=== PATIENT | female | born 1955 | race Two or more races ===

== ENCOUNTER 2024-04-15 13:52 | Emergency (ER) | payer MEDICARE, OTHER ==
[~2024-04-15] VITALS: Ht 149.9 cm; Wt 63.6 kg
[2024-04-15 14:31] LABS: BASOPHILS # (AUTO) 0.1 X10'3 (0-0.2); BASOPHILS % (AUTO) 0.9 % (0-1); EOSINOPHILS # (AUTO) 0.4 X10'3 (0-0.9); EOSINOPHILS % (AUTO) 4.7 % (0-6); HEMOGLOBIN 14.1 g/dl (12.0-16.0); LYMPHOCYTES # (AUTO) 3.1 X10'3 (1.1-4.8); MEAN CORPUSCULAR HEMOGLOBIN 28.5 PG (27.0-31.0); MEAN CORPUSCULAR HGB CONC 33.5 g/dL (33.0-36.5); MEAN CORPUSCULAR VOLUME 85.1 FL (78-98); MEAN PLATELET VOLUME 7.8 FL (7.4-10.4); MONOCYTES # (AUTO) 0.7 X10'3 (0-0.9); MONOCYTES % (AUTO) 8.3 % (2-12); NEUTROPHILS # (AUTO) 4.5 X10'3 (1.8-7.7); NEUTROPHILS % (AUTO) 51.1 % (42-75); PLATELET COUNT 293 X10'3 (140-440); RED BLOOD COUNT 4.93 X10'6 (4.20-5.60); RED CELL DISTRIBUTION WIDTH 13.6 % (11.5-14.5); WHITE BLOOD COUNT 8.9 X10'3 (4.5-11.0)
[2024-04-15 14:46] LABS: ALANINE AMINOTRANSFERASE 23 U/L (12-78); ALBUMIN 3.9 G/DL (3.4-5.0); ALBUMIN/GLOBULIN RATIO 1.2 (1.1-1.5); ALKALINE PHOSPHATASE 72 IU/L (46-116); ANION GAP 7 (8-16); ASPARTATE AMINO TRANSFERASE 11 U/L (10-37); BILIRUBIN,TOTAL 0.4 MG/DL (0.1-1.0); BLOOD UREA NITROGEN 13 MG/DL (7-18); BUN/CREATININE RATIO 16.3 (10.0-20.0); CALCIUM 9.2 MG/DL (8.5-10.1); CHLORIDE 106 MMOL/L (99-107); GLUCOSE 157 MG/DL (70-104); SODIUM 141 MMOL/L (135-145); TOTAL CARBON DIOXIDE 28.1 MMOL/L (24-32); TOTAL PROTEIN 7.2 G/DL (6.4-8.2); eCRCL 46 ML/MIN; eGFR 71 ML/MIN
[2024-04-15 14:54] LABS: PRO BRAIN NATRIURETIC PEPTIDE 115 PG/ML (0-125)
[2024-04-15] MEDS ORDERED: LEVO25CA4 PO (18:36)
[2024-04-15] MEDS ORDERED: OMEP40CA21 PO (18:36)
[2024-04-15 18:41] VITALS: BP 156/86; PULSE 68; RESP 14; TEMP 96.6; O2SAT 96
== END 2024-04-15 18:43 | disposition home or self-care (01) ==
LOC: ER 13:53
DX: I10 Essential (primary) hypertension (principal); E11.9 Type 2 diabetes mellitus without complications; E78.00 Pure hypercholesterolemia, unspecified; E03.9 Hypothyroidism, unspecified; Z88.8 Allergy status to other drugs, medicaments and biological substances
CPT/HCPCS: 36415; 71045; 80053; 83880; 84484; 85025; 93005; 99285

== ENCOUNTER 2024-05-25 09:23 | Inpatient (IN) | payer MEDICARE, MEDICAID ==
[2024-05-25] VITALS (10 sets, daily range): BP systolic 145–162; BP diastolic 73–89; PULSE 83–131; RESP 15–16; TEMP 98.1; O2SAT 95–99
[~2024-05-25] VITALS: Ht 149.9 cm; Wt 65.8 kg
[~2024-05-25 09:23] MED LIST: LEVO25CA5 PO; OMEP40CA21 PO
[2024-05-25 10:22] LABS: BASOPHILS # (AUTO) 0.1 X10'3 (0-0.2); BASOPHILS % (AUTO) 0.4 % (0-1); EOSINOPHILS # (AUTO) 0.1 X10'3 (0-0.9); EOSINOPHILS % (AUTO) 0.8 % (0-6); HEMATOCRIT 42.1 % (35.0-45.0); HEMOGLOBIN 13.9 g/dl (12.0-16.0); LYMPHOCYTES # (AUTO) 1.9 X10'3 (1.1-4.8); MEAN CORPUSCULAR HEMOGLOBIN 28.2 PG (27.0-31.0); MEAN CORPUSCULAR HGB CONC 32.9 g/dL (33.0-36.5); MEAN CORPUSCULAR VOLUME 85.7 FL (78-98); MEAN PLATELET VOLUME 7.4 FL (7.4-10.4); MONOCYTES # (AUTO) 0.9 X10'3 (0-0.9); MONOCYTES % (AUTO) 6.2 % (2-12); NEUTROPHILS # (AUTO) 10.8 X10'3 (1.8-7.7); NEUTROPHILS % (AUTO) 78.6 % (42-75); PLATELET COUNT 265 X10'3 (140-440); RED BLOOD COUNT 4.91 X10'6 (4.20-5.60); RED CELL DISTRIBUTION WIDTH 13.4 % (11.5-14.5); WHITE BLOOD COUNT 13.7 X10'3 (4.5-11.0)
[2024-05-25 10:43] LABS: ALANINE AMINOTRANSFERASE 20 U/L (12-78); ALBUMIN 3.8 G/DL (3.4-5.0); ALKALINE PHOSPHATASE 61 IU/L (46-116); ANION GAP 6 (8-16); ASPARTATE AMINO TRANSFERASE 14 U/L (10-37); BILIRUBIN,TOTAL 0.4 MG/DL (0.1-1.0); BLOOD UREA NITROGEN 18 MG/DL (7-18); BUN/CREATININE RATIO 23.1 (10.0-20.0); CALCIUM 9.2 MG/DL (8.5-10.1); CHLORIDE 106 MMOL/L (99-107); CREATININE 0.78 MG/DL (0.40-0.90); GLUCOSE 82 MG/DL (70-104); POTASSIUM 3.8 MMOL/L (3.5-5.1); SODIUM 140 MMOL/L (135-145); TOTAL PROTEIN 7.5 G/DL (6.4-8.2); eCRCL 47 ML/MIN; eGFR 73 ML/MIN
[2024-05-25 10:49] LABS: PRO BRAIN NATRIURETIC PEPTIDE 212 PG/ML (0-125)
[2024-05-25] MEDS ORDERED: nitroGLYCERIN 0.4mg SUBLingual tab SL PRN (12:45)
[2024-05-25] MEDS ORDERED: potassium Cl 20 mEq SR tablet PO PRN ×2 (12:45)
[2024-05-25] MEDS ORDERED: magnesium hydroxide 30ml (MOM) UD suspension PO PRN (12:45)
[2024-05-25] MEDS ORDERED: aminophylline 500mg/20ml vial IV PRN (12:45)
[2024-05-25] MEDS ORDERED: HYDROcodone/acetaminophen 5mg/325mg tablet PO PRN (12:45)
[2024-05-25] MEDS ORDERED: mag hydrox/Alum hydrox/simeth 30ml oral suspension PO PRN (12:45)
[2024-05-25] MEDS ORDERED: potassium Cl 40MEQ/1/2NS 520ml 520 ML IV PRN (12:45)
[2024-05-25] MEDS ORDERED: ondansetron 4mg rapidly disintigrating tab PO PRN (12:45)
[2024-05-25] MEDS ORDERED: ondansetron/PF 4mg/2ml inj IV PRN (12:45)
[2024-05-25] MEDS ORDERED: magnesium sulf-water 4G/100mL 100 ML IV PRN (12:45)
[2024-05-25] MEDS ORDERED: acetaminophen 325mg tablet PO PRN (12:45)
[2024-05-25] MEDS ORDERED: metoprolol tartrate 1mg/ml inj IV PRN (12:45)
[2024-05-25] MEDS ORDERED: magnesium sulf-water 2g/50mL 50 ML IV PRN (12:45)
[2024-05-25] MEDS ORDERED: HYDROcodone/acetaminophen 10/325mg tab PO PRN (12:45)
[2024-05-25] MEDS: PERFLUTREN PROTEIN-A MICROSPHR (Optison) 0.22 MG/ML 3ML VIAL IV ONE (12:50)
[2024-05-25] MEDS: losartan 25mg tablet PO ONE (12:50)
[2024-05-25] MEDS ORDERED: glucagon, human recombinant 1mg kit SUBCUT PRN (13:25)
[2024-05-25] MEDS ORDERED: dextrose 50%-water 50ml dispensing syringe IV PRN ×2 (13:25)
[2024-05-25] MEDS ORDERED: DEXTROSE 15 GM of carb/4 tabs (each vial/BOTTLE has 4 tablets) PO PRN ×2 (13:25)
[2024-05-25] MEDS ORDERED: hydrALAZINE 20mg/ml inj. IV PRN (13:35)
[2024-05-25 13:55] LABS: CHOL/HDL RATIO 3.2 (0.00-4.99); CHOLESTEROL 149 MG/DL (0-200); HDL CHOLESTEROL 47 MG/DL (35-60); LDL CHOLESTEROL 82 MG/DL (50-100); TRIGLYCERIDES 94 MG/DL (20-135)
[2024-05-25 13:56] LABS: HEMOGLOBIN A1C 8.5 % (4.5-6.2)
[2024-05-25] MEDS: regadenoson 0.4mg/5ml syringe IV PRN (16:19)
[2024-05-25] MEDS: INSULIN LISPRO 100 UNIT/ML INSULN.PEN MULTI-DOSE SQ SCH (17:00)
[2024-05-25] MEDS: acetaminophen 325mg tablet PO PRN (18:14)
[2024-05-25] MEDS ORDERED: ATOR20TA PO (19:10)
[2024-05-25] MEDS ORDERED: CHOL125C6 PO (19:10)
[2024-05-25] MEDS ORDERED: DAPA10TA PO (19:10)
[2024-05-25] MEDS ORDERED: OMEP40CA21 PO (19:10)
[2024-05-25] MEDS ORDERED: GLIP-299 PO (19:10)
[2024-05-25] MEDS ORDERED: SYN0.088T PO (19:10)
[2024-05-25] MEDS: K and/or MAG REPLACEMENT MC SCH (20:00)
[2024-05-25] MEDS: docusate sod 100mg capsule PO SCH (20:00)
[2024-05-25] MEDS: heparin, porcine 5000 units/ml vial SQ SCH (20:35)
[2024-05-25] MEDS: atorvastatin 20mg tablet PO SCH (20:36)
[2024-05-26 03:00] VITALS: BP 124/68; PULSE 66; RESP 16; TEMP 97.4; O2SAT 96
[2024-05-26 05:24] LABS: BASOPHILS # (AUTO) 0.1 X10'3 (0-0.2); BASOPHILS % (AUTO) 0.7 % (0-1); EOSINOPHILS # (AUTO) 0.4 X10'3 (0-0.9); EOSINOPHILS % (AUTO) 4.2 % (0-6); HEMATOCRIT 39.4 % (35.0-45.0); HEMOGLOBIN 13.3 g/dl (12.0-16.0); LYMPHOCYTES # (AUTO) 3.4 X10'3 (1.1-4.8); LYMPHOCYTES % (AUTO) 40.2 % (21-51); MEAN CORPUSCULAR HEMOGLOBIN 28.8 PG (27.0-31.0); MEAN CORPUSCULAR HGB CONC 33.7 g/dL (33.0-36.5); MEAN CORPUSCULAR VOLUME 85.5 FL (78-98); MEAN PLATELET VOLUME 7.8 FL (7.4-10.4); MONOCYTES # (AUTO) 0.7 X10'3 (0-0.9); MONOCYTES % (AUTO) 7.7 % (2-12); NEUTROPHILS % (AUTO) 47.2 % (42-75); PLATELET COUNT 264 X10'3 (140-440); RED BLOOD COUNT 4.61 X10'6 (4.20-5.60); RED CELL DISTRIBUTION WIDTH 13.6 % (11.5-14.5); WHITE BLOOD COUNT 8.6 X10'3 (4.5-11.0)
[2024-05-26 05:49] LABS: ALANINE AMINOTRANSFERASE 16 U/L (12-78); ALBUMIN 3.6 G/DL (3.4-5.0); ALKALINE PHOSPHATASE 61 IU/L (46-116); ANION GAP 5 (8-16); ASPARTATE AMINO TRANSFERASE 11 U/L (10-37); BILIRUBIN,TOTAL 0.4 MG/DL (0.1-1.0); BLOOD UREA NITROGEN 18 MG/DL (7-18); BUN/CREATININE RATIO 24.3 (10.0-20.0); CALCIUM 9.3 MG/DL (8.5-10.1); CHLORIDE 107 MMOL/L (99-107); CREATININE 0.74 MG/DL (0.40-0.90); FREE T4 (FREE THYROXINE) 0.72 NG/DL (0.73-1.40); GLUCOSE 117 MG/DL (70-104); MAGNESIUM 2.1 MG/DL (1.5-2.4); POTASSIUM 4.4 MMOL/L (3.5-5.1); SODIUM 142 MMOL/L (135-145); THYROID STIMULATING HORMONE 8.33 ulU/ml (0.34-4.50); TOTAL CARBON DIOXIDE 29.6 MMOL/L (24-32); TOTAL PROTEIN 7.2 G/DL (6.4-8.2); eCRCL 50 ML/MIN; eGFR 78 ML/MIN
[2024-05-26 06:00] VITALS: BP 141/74; PULSE 64; RESP 12; TEMP 98.9; O2SAT 97
[2024-05-26] MEDS: losartan 25mg tablet PO SCH (07:24)
[2024-05-26 08:00] VITALS: RESP 12; O2SAT 97
[2024-05-26] MEDS: levoTHYROXINE 25mcg tablet PO ONE (09:11)
[2024-05-26 09:53] LABS: BILIRUBIN,URINE NEGATIVE (Neg); CLARITY,URINE CLEAR (Clear); COLOR,URINE YELLOW (Yellow); GLUCOSE, URINE >=1000 mg/dl (Neg); KETONES,URINE NEGATIVE (Neg); LEUKOCYTE ESTERASE ,URINE NEGATIVE (Neg); NITRITES, URINE NEGATIVE (Neg); OCCULT BLOOD,URINE NEGATIVE (Neg); PROTEIN,URINE NEGATIVE (Neg); UROBILINOGEN,URINE 0.2 E.U/dL (0.2-1.0)
[2024-05-26 10:00] VITALS: BP 112/59; PULSE 70; RESP 14; TEMP 98.2; O2SAT 95
[2024-05-26 10:10] LABS: UA COLLECTION TYPE NON-SPECIFIED
[2024-05-26 10:12] LABS: BACTERIA,URINE NONE SEEN /HPF (Neg); MUCUS STRANDS FEW /LPF (Neg); RBC,URINE 0-2 /HPF (0-2); SQUAMOUS EPITHELIAL CELL,UR FEW /LPF (FEW); WBC,URINE NONE SEEN /HPF (0-4)
[2024-05-26 18:00] VITALS: BP 120/68; PULSE 68; RESP 16; TEMP 99.3; O2SAT 95
[2024-05-26 22:00] VITALS: BP 134/55; PULSE 71; RESP 14; TEMP 97.7; O2SAT 93
[2024-05-27 04:39] LABS: BASOPHILS # (AUTO) 0.1 X10'3 (0-0.2); BASOPHILS % (AUTO) 0.8 % (0-1); EOSINOPHILS # (AUTO) 0.5 X10'3 (0-0.9); EOSINOPHILS % (AUTO) 5.7 % (0-6); HEMATOCRIT 41.3 % (35.0-45.0); HEMOGLOBIN 13.8 g/dl (12.0-16.0); LYMPHOCYTES # (AUTO) 3.9 X10'3 (1.1-4.8); LYMPHOCYTES % (AUTO) 45.1 % (21-51); MEAN CORPUSCULAR HEMOGLOBIN 28.8 PG (27.0-31.0); MEAN CORPUSCULAR HGB CONC 33.4 g/dL (33.0-36.5); MEAN CORPUSCULAR VOLUME 86.3 FL (78-98); MEAN PLATELET VOLUME 7.7 FL (7.4-10.4); MONOCYTES # (AUTO) 0.7 X10'3 (0-0.9); MONOCYTES % (AUTO) 8.5 % (2-12); NEUTROPHILS # (AUTO) 3.5 X10'3 (1.8-7.7); NEUTROPHILS % (AUTO) 39.9 % (42-75); PLATELET COUNT 281 X10'3 (140-440); RED BLOOD COUNT 4.79 X10'6 (4.20-5.60); RED CELL DISTRIBUTION WIDTH 13.5 % (11.5-14.5); WHITE BLOOD COUNT 8.7 X10'3 (4.5-11.0)
[2024-05-27 04:59] LABS: ALANINE AMINOTRANSFERASE 28 U/L (12-78); ALBUMIN 3.6 G/DL (3.4-5.0); ALBUMIN/GLOBULIN RATIO 1.2 (1.1-1.5); ALKALINE PHOSPHATASE 62 IU/L (46-116); ANION GAP 5 (8-16); ASPARTATE AMINO TRANSFERASE 12 U/L (10-37); BILIRUBIN,TOTAL 0.4 MG/DL (0.1-1.0); BLOOD UREA NITROGEN 27 MG/DL (7-18); BUN/CREATININE RATIO 32.9 (10.0-20.0); CALCIUM 9.1 MG/DL (8.5-10.1); CHLORIDE 104 MMOL/L (99-107); CREATININE 0.82 MG/DL (0.40-0.90); GLUCOSE 149 MG/DL (70-104); MAGNESIUM 1.9 MG/DL (1.5-2.4); POTASSIUM 4.3 MMOL/L (3.5-5.1); SODIUM 138 MMOL/L (135-145); TOTAL CARBON DIOXIDE 28.8 MMOL/L (24-32); TOTAL PROTEIN 6.7 G/DL (6.4-8.2); eCRCL 45 ML/MIN; eGFR 69 ML/MIN
[2024-05-27 06:00] VITALS: BP 128/58; PULSE 66; RESP 14; TEMP 97.9; O2SAT 94
[2024-05-27] MEDS: levoTHYROXINE 25mcg tablet PO SCH (07:18)
[2024-05-27 08:00] VITALS: RESP 14; O2SAT 94
[2024-05-27] MEDS ORDERED: ATOR20TA66 PO (08:10)
[2024-05-27] MEDS ORDERED: METF-1203 PO (08:10)
[2024-05-27] MEDS ORDERED: LEVO25TA7 PO (08:10)
[2024-05-27] MEDS ORDERED: DAPA10TA PO (08:10)
[2024-05-27 10:00] VITALS: BP 110/56; PULSE 65; RESP 17; TEMP 97.2; O2SAT 94
== END 2024-05-27 14:37 | disposition home or self-care (01) | DRG 638 ==
LOC: ER 09:24 → ED HOLD 12:45 → PCU 3S 17:21 → SUR 3N 05-26 03:00
PROVIDERS: ADMIT Nurse Practitioner Family; ATTEND Nurse Practitioner Family
PROC: 4A02XM4 Measurement of Cardiac Total Activity, External Approach (ICD-10-PCS; principal; 2024-05-25)
PROC: 3E033HZ Introduction of Radioactive Substance into Peripheral Vein, Percutaneous Approach (ICD-10-PCS; 2024-05-25)
DX: E11.649 Type 2 diabetes mellitus with hypoglycemia without coma (principal); I16.1 Hypertensive emergency; I10 Essential (primary) hypertension; H90.3 Sensorineural hearing loss, bilateral; E78.5 Hyperlipidemia, unspecified; E03.9 Hypothyroidism, unspecified; Z88.8 Allergy status to other drugs, medicaments and biological substances; Z87.891 Personal history of nicotine dependence; Z79.899 Other long term (current) drug therapy
CPT/HCPCS: 36415; 71045; 78452; 80053; 80061; 81001; 82948; 83036; 83735; 83880; 84439; 84443; 84484; 85025; 87081; 93005; 93017; 93306; 99285; A9500; G0378; J1644; J1815; J2785

== ENCOUNTER 2024-11-22 12:42 | Emergency (ER) | payer MEDICARE, MEDICAID ==
[~2024-11-22] VITALS: Ht 149.9 cm; Wt 65.4 kg
[~2024-11-22 12:42] MED LIST changes: +ATOR20TA66 PO; +CHOL125C6 PO; +DAPA10TA PO; +GLIP-299 PO; -LEVO25CA5 PO; +LEVO25TA7 PO
--- NOTE | 2024-11-22 13:24 | RADIOLOGY REPORT ---
EXAM: CT CT HEAD INDICATION: DIZZINESS, TECHNIQUE: CT of the head without intravenous contrast. Radiation Dose : 1. Head: CT Dose: CTDI volume is 54 mGy. Dose-length product is 155 mGy*cm The dose indicators for CT are the volume Computed Tomography (CT) Dose Index (CTDIvol) and the Dose Length Product (DLP), and are measured in units of mGy and mGy-cm, respectively. These indicators are not patient dose, but values generated from the CT scanner acquisition factors. The report includes radiation exposure data for exposures received during this examination. COMPARISON: None FINDINGS: There is no evidence of acute intracranial hemorrhage, extra-axial collection, mass effect, midline shift, herniation or hydrocephalus. The ventricles, sulci and cisterns are age appropriate. The munoz-white differentiation is intact. The visualized paranasal sinuses and mastoid air cells are clear. The surrounding soft tissues and osseous structures are unremarkable. IMPRESSION: No acute intracranial abnormality. Radiation optimization: All CT scans at this facility use at least one of these dose optimization techniques: automated exposure control mA and/or kV adjustment per patient size (includes targeted exams where dose is matched to clinical indication) or iterative reconstruction.
--- NOTE | 2024-11-22 17:22 | Physician Documentation ---
History of Present Illness ~ Chief Complaint: Dizziness Stated Complaint: NUMBNESS IN MOUTH Time Seen by MD: 15:50 Primary Medical Doctor: MAURICIO MENDIETA HPI 69-year-old female presents to the ED with a complaint of acute onset dizziness today. She denies any chest pain or shortness of breath. He has a known diabetic she states that she is on multiple diabetic medications. This includes glipizide, Farxiga , Mounjaro. She has a previous stroke and is deaf. Uses sign language to communicate Glucose was 55 while I was in the room Day of Onset: Nov 22, 2024 Medication Reconciliation Allergies: Coded Allergies: metformin (Unverified Allergy, Unknown, PAIN, 11/22/24) Scheduled Atorvastatin Calcium (Atorvastatin Calcium), 40 MG PO HS Cholecalciferol (Vitamin D3) (Vitamin D3 Max), 1 CAP PO DAILY, (Reported) Dapagliflozin Propanediol (Farxiga), 1 TAB PO DAILY, (Reported) Dapagliflozin Propanediol (Farxiga), 1 TAB PO DAILY Glipizide (Glipizide ER), 1 TAB PO DAILY, (Reported) Levothyroxine Sodium (Levothyroxine Sodium), 50 MCG PO DAILY@07 Omeprazole (Prilosec), 1 CAP PO DAILY, (Reported) Past Medical History Patient History: Patient reports no known family medical history. Smoking Status: Unknown if ever smoked Review of Systems All Other Systems at this time: Reviewed and Negative Physical Exam Vital Signs: Temperature: 98.7, Source: Oral, Heart Rate: 68, Respiratory Rate: 16, BP: 163/90, Pulse Oximetry: 92, Weight: 65.400 Oxygen Flow Rate: 0 Physical Exam General: Alert, no apparent distress. Respiratory: Lungs clear, no respiratory distress. Cardiovascular: Regular rate and rhythm, no murmurs. Gastrointestinal: Soft, nontender, nondistended. Bowels sounds present. Neurologic: Oriented x4. Psychiatric: Normal mood and affect. Skin: Normal color, warm and dry. No edema, no ecchymosis. Progress Results/Orders Results/Orders Orders - MATT SINGH CARDIAC CATH RN Monitor (11/22/24 17:16) Chest,Single View (11/22/24 17:31) Urinalysis (11/22/24 19:11) Completed Orders - MATT SINGH CARDIAC CATH RN Cbc/Diff (11/22/24 17:16) Electrocardiogram (11/22/24 17:16) Chest,Single View (11/22/24 17:31) BMP (11/22/24 17:16) Vital Signs 11/22/24 11/22/24 11/22/24 11/22/24 12:46 14:44 16:59 18:04 Temp 98.7 98.7 98.7 Pulse 71 70 68 72 Resp 18 16 17 B/P (MAP) 141/99 163/87 (112) 163/90 (114) 166/85 (112) Pulse Ox 95 96 92 94 O2 Flow Rate 0 0 0 11/22/24 18:32 Resp 16 B/P (MAP) Laboratory Tests Test 11/22/24 14:58 11/22/24 15:28 11/22/24 17:12 11/22/24 17:37 Urine Comment Glucometer 72 55 L 72 Test 11/22/24 17:38 White Blood Count 10.0 Red Blood Count 4.93 Hemoglobin 14.3 Hematocrit 41.6 Mean Corpuscular Volume 84.4 Mean Corpuscular Hemoglobin 28.9 Mean Corpuscular Hemoglobin Concent 34.3 Red Cell Distribution Width 13.9 Platelet Count 264 Mean Platelet Volume 7.6 Neutrophils (%) (Auto) 46.5 Lymphocytes (%) (Auto) 41.4 Monocytes (%) (Auto) 7.3 Eosinophils (%) (Auto) 4.1 Basophils (%) (Auto) 0.7 Neutrophils # (Auto) 4.7 Lymphocytes # (Auto) 4.2 Monocytes # (Auto) 0.7 Eosinophils # (Auto) 0.4 Basophils # (Auto) 0.1 CBC Comment Sodium Level 142 Potassium Level 3.7 Chloride Level 106 Carbon Dioxide Level 29.8 Anion Gap 6 L Blood Urea Nitrogen 16 Creatinine 0.90 Estimated GFR/1.73 m2 62 BUN/Creatinine Ratio 17.8 Glucose Level 73 Calcium Level 9.3 Albumin 3.9 Chemistry Comments Medical Decision Making Findings Patient's laboratory values were unremarkable and did not show any signs with with indicate severe dehydration. For CT was unremarkable for any intracranial abnormalities. X-ray per my interpretation showed no signs of pulmonary infiltrate. Her urinalysis was reassuring as well. However based on this patient's history of stroke in concerns over hypoglycemia I did offer hospitalization. sHe adamantly refused Differential Dx:Considerations: Include: anemia, CVA, dehydration, dysrhythmia, electrolyte imbalance, encephalopathy, Guillain-[place], hypoglycemia, hypotensio n, hypovolemia, labyrinthitis, Meniere's disease, myasathenia gravis, myocardial infarction, pulmonary embolus, renal failure, respiratory failure, TIA, VBI, vertigo central, vertigo peripheral, vestibular neuronitis, other Departure Disposition: HOME / SELF CARE / HOMELESS Impression: Primary Impression: Dizziness Additional Impression: Hypoglycemia Discharge Instructions: Dizziness, Vertigo Additional Instructions: If you have persistent dizziness and vertigo you may benefit from a referral to go see a neurologist. You can obtain this from your primary care provider Referrals: NO PRIMARY CARE PROVIDER (PCP) Signature Scribe Signature: s Attestation: Scribed for Matt Singh [employer] by Matt Gonsalves NP . 11/22/24 18:20 MATT SINGH NP Nov 22, 2024 17:21
--- NOTE | 2024-11-22 17:44 | RADIOLOGY REPORT ---
CHEST RADIOGRAPH Indication: Stroke Alert Technique: Single frontal view of the chest was obtained Comparison: DI CHEST,SINGLE VIEW on DOS: 05/25/24, DI CHEST,SINGLE VIEW on DOS: 04/15/24 FINDINGS: Lines and Tubes: None Lungs: No focal consolidation. Pleura: No effusion. No pneumothorax. Cardiomediastinal contours: Unremarkable Bones: No acute osseous abnormality. IMPRESSION: No acute cardiopulmonary disease.
[2024-11-22 17:50] LABS: MEAN PLATELET VOLUME 7.6 FL (7.4-10.4); RED CELL DISTRIBUTION WIDTH 13.9 % (11.5-14.5)
--- NOTE | 2024-11-22 17:55 | ELECTROCARDIOGRAPH REPORT ---
[facility] Test Date: 2024-11-22 Test Time: 17:50:47 Pat Name: ZAY GRAJEDA Department: [facility]- Patient ID: [id number] Room: Gender: F Senior Java Web Developer: : 1955 Requested By: MATY SINGH Order Number: [id number] Reading MD: Dr. Bashir Blanc Measurements Intervals [place] Rate: 67 P: 64 GA: 130 QRS: 47 QRSD: 82 T: -58 QT: 542 QTc: 573 Interpretive Statements Sinus rhythm Probable left atrial enlargement Borderline repolarization abnormality Prolonged QT interval Electronically Signed On 11-24-2024 21:43:[address] Bashir Blanc Please click the below link to view image of tracing.
[2024-11-22 17:58] LABS: CREATININE 0.90 MG/DL (0.40-0.90); TOTAL CARBON DIOXIDE 29.8 MMOL/L (24-32); eCRCL 40 ML/MIN; eGFR 62 ML/MIN
[2024-11-22 18:04] VITALS: TEMP 98.7
[2024-11-22 19:37] LABS: LEUKOCYTE ESTERASE ,URINE NEGATIVE (Neg); NITRITES, URINE NEGATIVE (Neg); OCCULT BLOOD,URINE NEGATIVE (Neg)
[2024-11-22 19:41] VITALS: BP 157/86; PULSE 73; RESP 16; O2SAT 94
[2024-11-22 19:41] LABS: UA COLLECTION TYPE CLN CATCH MIDSTREAM
[2024-11-22 19:45] LABS: MUCUS STRANDS NONE SEEN /LPF (Neg); SQUAMOUS EPITHELIAL CELL,UR FEW /LPF (FEW)
== END 2024-11-22 19:42 | disposition home or self-care (01) ==
LOC: ER 12:43
DX: E11.649 Type 2 diabetes mellitus with hypoglycemia without coma (principal); R42 Dizziness and giddiness; Z86.73 Personal history of transient ischemic attack (TIA), and cerebral infarction without residual deficits; Z88.8 Allergy status to other drugs, medicaments and biological substances; Z79.899 Other long term (current) drug therapy
CPT/HCPCS: 36415; 70450; 71045; 80048; 81001; 82948; 85025; 93005; 99285